=== PATIENT | male | born 1995 | race American Indian/Alaskan Native ===

== ENCOUNTER 2018-03-29 08:42 | Emergency (ER) | payer SELFPAY ==
[2018-03-29 08:54] VITALS: BP 135/87
== END 2018-03-29 08:55 | disposition left against medical advice (07) ==
LOC: ED 08:42
DX: J02.9 Acute pharyngitis, unspecified (principal); J45.909 Unspecified asthma, uncomplicated; F12.90 Cannabis use, unspecified, uncomplicated; Z53.21 Procedure and treatment not carried out due to patient leaving prior to being seen by health care provider